=== PATIENT | male | born 1995 | race Asian ===

== ENCOUNTER 2020-06-21 14:36 | Emergency (ER) | payer SELFPAY ==
[~2020-06-21] VITALS: Ht 185.4 cm; Wt 68.2 kg
[2020-06-21 14:43] VITALS: BP 131/84
[2020-06-21] MEDS ORDERED: PERTUSS(ACELL),DIPH,TET VAC/PF 0.5 ML VIAL IM ONE (15:15)
== END 2020-06-21 16:53 | disposition home or self-care (01) ==
LOC: EMS 14:43
DX: S41.151A Open bite of right upper arm, initial encounter (principal); W55.01XA Bitten by cat, initial encounter; Y93.89 Activity, other specified; Y92.89 Other specified places as the place of occurrence of the external cause; Y99.8 Other external cause status
CPT/HCPCS: 90471; 90715